=== PATIENT | female | born 1965 | race African-American/Black ===

== ENCOUNTER 2016-09-18 17:26 | Emergency (ER) | payer MEDICARE, OTHER ==
[2016-09-18] MEDS ORDERED: PROM-PHEN-COD 6.25-5-10MG/5ML 5 ML CUP PO STA (20:12)
[2016-09-18] MEDS ORDERED: IPRATROPIUM-ALBUTEROL 3 ML NEB INHALATION STA (20:12)
--- NOTE | 2016-09-18 20:51 | XR ---
EXAMINATION TYPE: XR chest 2V DATE OF EXAM: 09/18/2016 8:45 PM COMPARISON: 07/06/2015 HISTORY: Cough and short of breath TECHNIQUE: Frontal and lateral views of the chest are obtained. FINDINGS: Heart and mediastinum are normal. There is a 1.5 cm nodular density in the right mid lung. The other lung mahoney are clear. There are no hilar masses. Diaphragm is normal. Bony thorax is inta ct. IMPRESSION: Right midlung nodule is probably not changed compared to old exam. This is relatively de nse and consistent with a granuloma. Normal heart.
--- NOTE | 2016-09-18 21:03 | ED ---
URI HPI - General Chief Complaint: Upper Respiratory Infection Stated Complaint: Sob-asthma Time Seen by Provider: 09/18/16 20:08 Source: patient, RN notes reviewed Mode of arrival: ambulatory - History of Present Illness Initial Comments: Patient is a 48-year-old feel presenting to the chief complaint of shortness of breath for approximately one day. Patient reports that she has recently completed azithromycin and steroids approximately 2 days ago. She denies fever or chills, she is a smoker. She reports her cough has been productive. She states she uses breathing treatments with little improvement. She reports she feels a tightness in her chest and wheezing. She denies headche, ear pain, sore throat, vision changes, nausea, vomiting. - Related Data Home Medications Medication Instructions Recorded Confirmed ALPRAZolam [Xanax] 2 mg PO BID 07/03/14 09/18/16 Albuterol Sulfate [Ventolin HFA] 1 - 3 puff INHALATION RT-Q4H PRN 10/12/1409/18 Butalb/Acetaminophen/Caffeine 1 tab PO BID PRN 10/12/14 09/18/16 [Fioricet 50-325-40] Zolpidem [Ambien] 10 mg PO HS 10/12/14 09/18/16 sitaGLIPtin [Januvia] 100 mg PO DAILY 10/12/14 09/18/16 Gabapentin [Neurontin] 300 mg PO TID 05/26/15 09/18/16 Insulin Detemir [Levemir Flextouch] 30 units SQ HS 05/26/15 09/18/16 Loratadine 10 mg PO DAILY 05/26/15 09/18/16 Methocarbamol [Robaxin] 500 mg PO TID 05/26/15 09/18/16 Naproxen [Naprosyn] 500 mg PO DAILY 05/26/15 09/18/16 Nortriptyline [Pamelor] 10 mg PO HS 05/26/15 09/18/16 oxyCODONE HCL 30 mg PO TID 05/26/15 09/18/16 traMADol HCl [Ultram] 50 mg PO Q6H PRN 05/26/15 09/18/16 Ascorbic Acid [Vitamin C] 1,000 mg PO DAILY 09/18/16 09/18/16 Cholecalciferol [Vitamin D3] 1,000 unit PO DAILY 09/18/16 09/18/16 Multivitamins, Thera [Multivitamin] 1 tab PO DAILY 09/18/16 09/18/16 Previous Rx's Medication Instructions Recorded Ipratropium-Albuterol Nebulize 3 ml INHALATION TID #30 neb 09/18/16 [Duoneb 0.5 mg-3 mg/3 ml Soln] Ipratropium-Albuterol Nebulize 3 ml INHALATION TID #30 neb 09/18/16 [Duoneb 0.5 mg-3 mg/3 ml Soln] Levofloxacin [Levaquin] 750 mg PO DAILY #4 tab 09/18/16 Promethazine/Dextromethorphan 5 ml PO BID #30 ml 09/18/16 [Phenergan DM Syrup] predniSONE 50 mg PO DAILY #5 tab 09/18/16 Allergies Allergy/AdvReac Type Severity Reaction Status Date / Time No Known Allergies Allergy Verified 09/18/16 20:47 Review of Systems ROS Statement: Those systems with pertinent positive or pertinent negative responses have been documented in the HPI. ROS Other: All systems not noted in ROS Statement are negative. Past Medical History Past Medical History: Asthma, Diabetes Mellitus, Fibromyalgia Additional Past Medical History / Comment(s): chronic bronchitis, DJD of the back and neck, History of Any Multi-Drug Resistant Organisms: None Reported Past Surgical History: Back Surgery, Orthopedic Surgery Additional Past Surgical History / Comment(s): rt shoulder Past Anesthesia/Blood Transfusion Reactions: No Reported Reaction Past Psychological History: Anxiety, Depression Smoking Status: Current every day smoker Past Alcohol Use History: None Reported Past Drug Use History: None Reported - Past Family History Mother History Unknown: Yes Family Medical History: Diabetes Mellitus General Exam - General Exam Comments Initial Comments: Pleasant well appearing 50 year old female. No acute dsitress. General appearance: alert, in no apparent distress Head exam: Present: atraumatic, normocephalic, normal inspection Eye exam: Present: normal appearance, PERRL, EOMI. Absent: scleral icterus, conjunctival injection, periorbital swelling ENT exam: Present: normal exam, mucous membranes moist Neck exam: Present: normal inspection. Absent: tenderness, meningismus, lymphadenopathy Respiratory exam: Present: normal lung sounds bilaterally, wheezes (Mild wheeze. ). Absent: respiratory distress, rales, rhonchi, stridor Cardiovascular Exam: Present: regular rate, normal rhythm, normal heart sounds. Absent: systolic murmur, diastolic murmur, rubs, gallop, clicks GI/Abdominal exam: Present: soft, normal bowel sounds. Absent: distended, tenderness, guarding, rebound, rigid Extremities exam: Present: normal inspection, full ROM, normal capillary refill. Absent: tenderness, pedal edema, joint swelling, calf tenderness Back exam: Present: normal inspection Neurological exam: Present: alert, oriented X3, CN II-XII intact Psychiatric exam: Present: normal affect, normal mood Skin exam: Present: warm, dry, intact, normal color. Absent: rash Course Vital Signs 09/18/16 09/18/16 09/18/16 18:05 20:10 20:23 Temperature 98.6 F Pulse Rate 74 78 Respiratory 20 20 Rate Blood Pressure 168/82 O2 Sat by Pulse 98 Oximetry 09/18/16 09/18/16 20:36 21:45 Temperature 98.9 F Pulse Rate 78 95 Respiratory 18 Rate Blood Pressure 143/83 O2 Sat by Pulse 96 Oximetry Medical Decision Making - Medical Decision Making 50 year old female with cough and wheezing for one week, she recently completed Azithromycin antibiotic 2 days ago. She states that she has used her at home breathing treatments. She denies fever or chills, Patient given duoneb treatment and has improvement of wheezing. CXR shows no acute abnormalities and pneumonia. Patient will be given Rx of cough syrup, steroids, levaquin, and duoneb treatments for at home. CXR did show a stable pulmonary nodule and patient was advised to follow with PCP. Patient understands treatment plan and will comply. return parameteres discussed. Disposition Clinical Impression: Cough, Asthma Disposition: HOME SELF-CARE Condition: Good Instructions: Upper Respiratory Infection (ED), Asthma (ED) Additional Instructions: Patient instructed to complete steroid and antibiotic prescription. Follow-up with primary care physician. Return to the [facility] if any alarming signs or symptoms occur. Patient started to follow-up with primary care physician in regards to the pulmonary nodule. Prescriptions: Ipratropium-Albuterol Nebulize [Duoneb 0.5 mg-3 mg/3 ml Soln] 3 ml INHALATION TID #30 neb Ipratropium-Albuterol Nebulize [Duoneb 0.5 mg-3 mg/3 ml Soln] 3 ml INHALATION TID #30 neb Levofloxacin [Levaquin] 750 mg PO DAILY #4 tab Promethazine/Dextromethorphan [Phenergan DM Syrup] 5 ml PO BID #30 ml predniSONE 50 mg PO DAILY #5 tab Referrals: Elidia Davila MD [Primary Care Provider] - 1-2 days Time of Disposition: 21:19
[2016-09-18] MEDS ORDERED: LEVOFLOXACIN 750 MG TAB PO STA (21:16)
[2016-09-18] MEDS ORDERED: predniSONE 50 MG TAB PO STA (21:18)
[2016-09-18 21:49] VITALS: BP 143/83; PULSE 95; RESP 18; TEMP 98.9
== END 2016-09-18 21:45 | disposition home or self-care (01) ==
LOC: EC 17:26
DX: R05 Cough (principal); J45.909 Unspecified asthma, uncomplicated; R91.1 Solitary pulmonary nodule; E11.9 Type 2 diabetes mellitus without complications; F41.9 Anxiety disorder, unspecified; M79.7 Fibromyalgia; F32.9 Major depressive disorder, single episode, unspecified; Z79.899 Other long term (current) drug therapy; Z79.84 Long term (current) use of oral hypoglycemic drugs; F17.200 Nicotine dependence, unspecified, uncomplicated
CPT/HCPCS: 94640; 71020; 99285; J7512

== ENCOUNTER 2017-02-27 23:03 | Emergency (ER) | payer MEDICARE, OTHER ==
[2017-02-27 23:12] VITALS: BP 172/111; PULSE 86; RESP 18; TEMP 98.7
[2017-02-27] MEDS ORDERED: diphenhydrAMINE 25 MG CAP PO STA (23:19)
[2017-02-27] MEDS ORDERED: HYDROcodone/APAP 10-325MG 1 EACH TAB PO ONE (23:19)
[2017-02-27] MEDS ORDERED: AMOXIC-POT CLAV 875-125MG 1 EACH TAB PO STA (23:19)
[2017-02-27] MEDS ORDERED: PROCHLORPERAZINE 5 MG TAB PO STA (23:48)
[2017-02-27] MEDS ORDERED: MORPHINE SULFATE 10 MG/ML SYRINGE IM STA (23:49)
--- NOTE | 2017-02-28 00:20 | ED ---
Allergic Reaction HPI - General Chief complaint: Allergic Reaction Stated complaint: facial swelling Time Seen by Provider: 02/27/17 23:16 Source: patient, family Mode of arrival: ambulatory Limitations: no limitations - History of Present Illness Initial Comments: Patient complains of pain and swelling in the left lower jaw. She has no neck pain or stiffness. She has no trouble opening her mouth. She has no trouble swallowing. She has no change in vision or hearing. She has no headache. Nothing makes the pain better or worse. She denies any injuries. She has no weakness. She has no fever or chills. - Related Data Home Medications Medication Instructions Recorded Confirmed ALPRAZolam [Xanax] 2 mg PO BID 07/03/14 02/27/17 Albuterol Sulfate [Ventolin HFA] 1 - 3 puff INHALATION RT-Q4H PRN 10/12/1402/27 Butalb/Acetaminophen/Caffeine 1 tab PO BID PRN 10/12/14 02/27/17 [Fioricet 50-325-40] Zolpidem [Ambien] 10 mg PO HS 10/12/14 02/27/17 sitaGLIPtin [Januvia] 100 mg PO DAILY 10/12/14 02/27/17 Gabapentin [Neurontin] 300 mg PO TID 05/26/15 02/27/17 Insulin Detemir [Levemir Flextouch] 30 units SQ HS 05/26/15 02/27/17 Loratadine 10 mg PO DAILY 05/26/15 02/27/17 Methocarbamol [Robaxin] 500 mg PO TID 05/26/15 02/27/17 Naproxen [Naprosyn] 500 mg PO DAILY 05/26/15 02/27/17 Nortriptyline [Pamelor] 10 mg PO HS 05/26/15 02/27/17 oxyCODONE HCL 30 mg PO TID 05/26/15 02/27/17 traMADol HCl [Ultram] 50 mg PO Q6H PRN 05/26/15 02/27/17 Ascorbic Acid [Vitamin C] 1,000 mg PO DAILY 09/18/16 02/27/17 Cholecalciferol [Vitamin D3] 1,000 unit PO DAILY 09/18/16 02/27/17 Multivitamins, Thera [Multivitamin] 1 tab PO DAILY 09/18/16 02/27/17 Previous Rx's Medication Instructions Recorded Ipratropium-Albuterol Nebulize 3 ml INHALATION TID #30 neb 09/18/16 [Duoneb 0.5 mg-3 mg/3 ml Soln] Ipratropium-Albuterol Nebulize 3 ml INHALATION TID #30 neb 09/18/16 [Duoneb 0.5 mg-3 mg/3 ml Soln] Levofloxacin [Levaquin] 750 mg PO DAILY #4 tab 09/18/16 Promethazine/Dextromethorphan 5 ml PO BID #30 ml 09/18/16 [Phenergan DM Syrup] predniSONE 50 mg PO DAILY #5 tab 09/18/16 Amoxic-Pot Clav 875-125Mg 1 tab PO Q12HR #20 tablet 02/28/17 [Augmentin 875-125] Allergies Allergy/AdvReac Type Severity Reaction Status Date / Time No Known Allergies Allergy Verified 02/27/17 23:12 Review of Systems ROS Statement: Those systems with pertinent positive or pertinent negative responses have been documented in the HPI. ROS Other: All systems not noted in ROS Statement are negative. Past Medical History Past Medical History: Asthma, Diabetes Mellitus, Fibromyalgia Additional Past Medical History / Comment(s): chronic bronchitis, DJD of the back and neck, History of Any Multi-Drug Resistant Organisms: None Reported Past Surgical History: Back Surgery, Orthopedic Surgery Additional Past Surgical History / Comment(s): rt shoulder Past Anesthesia/Blood Transfusion Reactions: No Reported Reaction Past Psychological History: Anxiety, Depression Smoking Status: Current every day smoker Past Alcohol Use History: None Reported Past Drug Use History: None Reported - Past Family History Mother History Unknown: Yes Family Medical History: Diabetes Mellitus General Exam Limitations: no limitations General appearance: alert, in no apparent distress Head exam: Present: atraumatic, normocephalic, normal inspection Eye exam: Present: normal appearance, PERRL, EOMI. Absent: scleral icterus, conjunctival injection, periorbital swelling ENT exam: Present: normal exam, mucous membranes moist Neck exam: Present: normal inspection. Absent: tenderness, meningismus, lymphadenopathy Respiratory exam: Present: normal lung sounds bilaterally. Absent: respiratory distress, wheezes, rales, rhonchi, stridor Cardiovascular Exam: Present: regular rate, normal rhythm, normal heart sounds. Absent: systolic murmur, diastolic murmur, rubs, gallop, clicks GI/Abdominal exam: Present: soft, normal bowel sounds. Absent: distended, tenderness, guarding, rebound, rigid Extremities exam: Present: normal inspection, full ROM, normal capillary refill. Absent: tenderness, pedal edema, joint swelling, calf tenderness Back exam: Present: normal inspection Neurological exam: Present: alert, oriented X3, CN II-XII intact Psychiatric exam: Present: normal affect, normal mood Skin exam: Present: warm, dry, intact, normal color. Absent: rash Course Vital Signs 02/27/17 23:06 Temperature 98.7 F Pulse Rate 86 Respiratory 18 Rate Blood Pressure 172/111 O2 Sat by Pulse 99 Oximetry Medical Decision Making - Medical Decision Making Patient complains of pain in the jaw. There is possibly an infectious process occurring. I am giving her a dose of antibiotics and a prescription for antibiotics to go home on. She is tolerating oral intake and has no symptoms to suggest a deep space infection. At this time she is stable for discharge and outpatient follow-up. Disposition Clinical Impression: Pain, dental Disposition: HOME SELF-CARE Condition: Good Instructions: Sinusitis (ED) Prescriptions: Amoxic-Pot Clav 875-125Mg [Augmentin 875-125] 1 tab PO Q12HR #20 tablet Referrals: Elidia Davila MD [Primary Care Provider] - 1-2 days Time of Disposition: 00:19
[2017-02-28] MEDS ORDERED: HYDROmorphone 1 MG/ML 1 ML SYRINGE IM STA (00:27)
== END 2017-02-28 00:56 | disposition home or self-care (01) ==
LOC: EC 23:03
DX: K08.89 Other specified disorders of teeth and supporting structures (principal); R68.84 Jaw pain; R22.0 Localized swelling, mass and lump, head; E11.9 Type 2 diabetes mellitus without complications; M79.7 Fibromyalgia; F32.9 Major depressive disorder, single episode, unspecified; F41.9 Anxiety disorder, unspecified; F17.200 Nicotine dependence, unspecified, uncomplicated; Z79.1 Long term (current) use of non-steroidal anti-inflammatories (NSAID); Z79.4 Long term (current) use of insulin; Z79.84 Long term (current) use of oral hypoglycemic drugs; Z79.891 Long term (current) use of opiate analgesic; Z79.899 Other long term (current) drug therapy; Z87.39 Personal history of other diseases of the musculoskeletal system and connective tissue
CPT/HCPCS: 99283; 96372 ×2; S0183; J2270; J1170

== ENCOUNTER 2018-02-03 13:16 | Emergency (ER) | payer MEDICARE, OTHER ==
[2018-02-03 13:23] VITALS: BP 170/94; PULSE 79; RESP 18; TEMP 98.1
[2018-02-03] MEDS ORDERED: KETOROLAC 30 MG/ML 1 ML VIAL IM STA (13:41)
--- NOTE | 2018-02-03 13:43 | ED ---
General Adult HPI - General Chief complaint: Upper Respiratory Infection Stated complaint: sinus problems Time Seen by Provider: 02/03/18 13:23 Source: patient, RN notes reviewed, old records reviewed Mode of arrival: ambulatory Limitations: no limitations - History of Present Illness Initial comments: 52-year-old female presents with nasal congestion and swelling over her right side of her face. Patient states she has been congested for the past 4 days. Denies fever or chills. Denies any dental pain. Denies sore throat. Denies cough or dyspnea. Patient has been taking Augmentin which she had prescribed previously. She's taken a total of 3 pills over 3 days. She is also taking Claritin but remains congested. No abdominal pain. No chest pain. Denies ear pain or fullness. - Related Data Home Medications Medication Instructions Recorded Confirmed ALPRAZolam [Xanax] 2 mg PO BID 07/03/14 07/19/17 Albuterol Sulfate [Ventolin HFA] 1 - 3 puff INHALATION RT-Q4H PRN 10/12/1407/19 Butalb/Acetaminophen/Caffeine 1 tab PO BID PRN 10/12/14 07/19/17 [Fioricet 50-325-40] Zolpidem [Ambien] 10 mg PO HS 10/12/14 07/19/17 sitaGLIPtin [Januvia] 100 mg PO DAILY 10/12/14 07/19/17 Gabapentin [Neurontin] 300 mg PO TID 05/26/15 07/19/17 Insulin Detemir [Levemir Flextouch] 30 units SQ HS 05/26/15 07/19/17 Loratadine 10 mg PO DAILY 05/26/15 07/19/17 Methocarbamol [Robaxin] 500 mg PO TID 05/26/15 07/19/17 Naproxen [Naprosyn] 500 mg PO DAILY 05/26/15 07/19/17 Nortriptyline [Pamelor] 10 mg PO HS 05/26/15 07/19/17 oxyCODONE HCL 30 mg PO TID 05/26/15 07/19/17 traMADol HCl [Ultram] 50 mg PO Q6H PRN 05/26/15 07/19/17 Ascorbic Acid [Vitamin C] 1,000 mg PO DAILY 09/18/16 07/19/17 Cholecalciferol [Vitamin D3] 1,000 unit PO DAILY 09/18/16 07/19/17 Multivitamins, Thera [Multivitamin] 1 tab PO DAILY 09/18/16 07/19/17 Previous Rx's Medication Instructions Recorded Ipratropium-Albuterol Nebulize 3 ml INHALATION TID #30 neb 09/18/16 [Duoneb 0.5 mg-3 mg/3 ml Soln] Ipratropium-Albuterol Nebulize 3 ml INHALATION TID #30 neb 09/18/16 [Duoneb 0.5 mg-3 mg/3 ml Soln] Levofloxacin [Levaquin] 750 mg PO DAILY #4 tab 09/18/16 Promethazine/Dextromethorphan 5 ml PO BID #30 ml 09/18/16 [Phenergan DM Syrup] predniSONE 50 mg PO DAILY #5 tab 09/18/16 predniSONE 60 mg PO DAILY #30 tab 07/19/17 Fluticasone Nasal [place] [Flonase 2 spr EA NOSTRIL DAILY #1 bottle 02/03/18 Nasal [place]] Levofloxacin [Levaquin] 500 mg PO DAILY 3 Days #5 tab 02/03/18 Loratadine [Claritin] 10 mg PO DAILY #30 tab 02/03/18 Allergies Allergy/AdvReac Type Severity Reaction Status Date / Time No Known Allergies Allergy Verified 02/03/18 13:23 Review of Systems ROS Statement: Those systems with pertinent positive or pertinent negative responses have been documented in the HPI. ROS Other: All systems not noted in ROS Statement are negative. Past Medical History Past Medical History: Asthma, Diabetes Mellitus, Fibromyalgia Additional Past Medical History / Comment(s): chronic bronchitis, DJD of the back and neck, History of Any Multi-Drug Resistant Organisms: None Reported Past Surgical History: Back Surgery, Orthopedic Surgery Additional Past Surgical History / Comment(s): rt shoulder Past Anesthesia/Blood Transfusion Reactions: No Reported Reaction Past Psychological History: Anxiety, Depression Smoking Status: Current every day smoker Past Alcohol Use History: None Reported Past Drug Use History: None Reported - Past Family History Mother History Unknown: Yes Family Medical History: Diabetes Mellitus General Exam Limitations: no limitations General appearance: alert, in no apparent distress, appears intoxicated Head exam: Present: atraumatic, normocephalic Eye exam: Present: PERRL, EOMI, periorbital swelling (Some minimal infraorbital swelling) ENT exam: Present: mucous membranes moist, normal external ear exam, other ( Right tympanic membrane is within normal limits. Poor dentition on the right upper molars) Neck exam: Present: normal inspection, full ROM. Absent: tenderness, meningismus Respiratory exam: Present: normal lung sounds bilaterally. Absent: respiratory distress, wheezes Cardiovascular Exam: Present: regular rate, normal rhythm GI/Abdominal exam: Present: soft. Absent: distended, tenderness, guarding Extremities exam: Present: normal inspection, full ROM, normal capillary refill. Absent: tenderness, pedal edema Neurological exam: Present: alert, oriented X3, CN II-XII intact. Absent: motor sensory deficit Psychiatric exam: Present: normal affect, normal mood Skin exam: Present: warm, dry, intact Course Vital Signs 02/03/18 13:20 Temperature 98.1 F Pulse Rate 79 Respiratory 18 Rate Blood Pressure 170/94 O2 Sat by Pulse 100 Oximetry Medical Decision Making - Medical Decision Making 52-year-old female presenting with nasal congestion and right facial pain and swelling. She does have some very minimal infraorbital and maxillary swelling. Nasal exam shows swollen turbinates on the right side. No pain on extraocular movements. Globes are soft bilaterally. No signs of orbital cellulitis at this time. Patient is afebrile and otherwise well-appearing. Patient has taken 3 days of Augmentin once daily. This is inadequate dosing, however given that she has been on this antibiotic she will be switched to Levaquin, she will continue Claritin and will begin Flonase. She will pay attention to her symptoms, and return with worsening symptoms or the development of fever. She will follow-up with her primary care physician. Disposition Clinical Impression: Sinusitis Disposition: HOME SELF-CARE Condition: Good Instructions: Sinusitis (ED) Additional Instructions: Please return with worsening swelling or development of fever. Follow-up with primary care physician. Prescriptions: Fluticasone Nasal [place] [Flonase Nasal [place]] 2 spr EA NOSTRIL DAILY #1 bottle Levofloxacin [Levaquin] 500 mg PO DAILY 3 Days #5 tab Loratadine [Claritin] 10 mg PO DAILY #30 tab Is patient prescribed a controlled substance at d/c from ED?: No Referrals: Elidia Davila MD [Primary Care Provider] - 1-2 days Time of Disposition: 13:52
== END 2018-02-03 14:03 | disposition home or self-care (01) ==
LOC: EC 13:16
DX: J32.8 Other chronic sinusitis (principal); E11.9 Type 2 diabetes mellitus without complications; M79.7 Fibromyalgia; F32.9 Major depressive disorder, single episode, unspecified; F41.9 Anxiety disorder, unspecified; F17.200 Nicotine dependence, unspecified, uncomplicated; Z79.1 Long term (current) use of non-steroidal anti-inflammatories (NSAID); Z79.4 Long term (current) use of insulin; Z79.84 Long term (current) use of oral hypoglycemic drugs; Z79.891 Long term (current) use of opiate analgesic; Z79.899 Other long term (current) drug therapy
CPT/HCPCS: 99283; 96372; J1885

== ENCOUNTER 2018-03-27 18:58 | Emergency (ER) | payer MEDICARE, OTHER ==
[2018-03-27 19:33] VITALS: RESP 18
[2018-03-27] MEDS ORDERED: KETOROLAC 30 MG/ML 1 ML VIAL IM STA (20:15)
[2018-03-27] MEDS ORDERED: ORPHENADRINE 30 MG/ML 2 ML VIAL IM STA (20:15)
[2018-03-27] MEDS ORDERED: HYDROmorphone 1 MG/ML 1 ML SYRINGE IVP STA (20:15)
--- NOTE | 2018-03-27 20:29 | ED ---
Back Pain HPI - General Chief Complaint: Back Pain/Injury Stated Complaint: Back Pain, Chest Tightness Time Seen by Provider: 03/27/18 20:01 Source: patient Limitations: no limitations - History of Present Illness Initial Comments: 52-year-old female patient presents to the emergency department today for evaluation of increased low back pain. Patient states that she has a chronic low back pain however her usual medications are not working. Patient states she had an increase in the back pain approximate days ago. Patient states that she has been fighting through the pain since then cannot take it any longer. Patient states that the pain radiates on the right leg all the way to the toes. States this is usual for her. She denies any saddle anesthesia. Denies any loss of bowel or bladder control. Patient states that the pain is been so bad her entire body now hurts. Patient does have a history of fibromyalgia. She denies any dizziness. States she feels weakness from fighting the pain. She denies any fevers or chills. She denies any injury to her back. Patient denies any recent rash, shortness breath, chest pain, abdominal pain, nausea, vomiting , diarrhea, constipation, hematuria, dysuria, urinary urgency, urinary frequency , headache, visual changes, or any other complaints. - Related Data Home Medications Medication Instructions Recorded Confirmed ALPRAZolam [Xanax] 2 mg PO BID 07/03/14 02/03/18 Albuterol Sulfate [Ventolin HFA] 2 puff INHALATION RT-Q4H PRN 10/12/14 02/03/18 sitaGLIPtin [Januvia] 100 mg PO DAILY 10/12/14 02/03/18 Gabapentin [Neurontin] 300 mg PO TID 05/26/15 02/03/18 Naproxen [Naprosyn] 500 mg PO BID 05/26/15 02/03/18 oxyCODONE HCL 30 mg PO Q8H 05/26/15 02/03/18 Azelastine HCl [Astepro] 1 spray EA NOSTRIL BID PRN 02/03/18 02/03/18 Banophen 25 mg PO DAILY PRN 02/03/18 02/03/18 Budesonide-Formot 160-4.5 Mcg 2 puff INHALATION RT-BID 02/03/18 02/03/18 [Symbicort 160-4.5 Mcg Inhaler] Diclofenac Sodium Gel [Voltaren 2 gm TOPICAL BID PRN 02/03/18 02/03/18 Gel] Esomeprazole Magnesium [NexIUM] 40 mg PO DAILY 02/03/18 02/03/18 Insulin Glargine,Hum.rec.anlog 35 unit SQ HS 02/03/18 02/03/18 [Lantus Solostar] Insulin Lispro [humaLOG Kwikpen] See Protocol SQ ACHS 02/03/18 02/03/18 Ipratropium-Albuterol Nebulize 3 ml INHALATION RT-QID 02/03/18 02/03/18 [Duoneb 0.5 mg-3 mg/3 ml Soln] Pioglitazone [Actos] 45 mg PO DAILY 02/03/18 02/03/18 Simvastatin [Zocor] 20 mg PO HS 02/03/18 02/03/18 Zolpidem [Ambien] 5 mg PO HS PRN 02/03/18 02/03/18 Previous Rx's Medication Instructions Recorded Fluticasone Nasal [place] [Flonase 2 spr EA NOSTRIL DAILY #1 bottle 02/03/18 Nasal [place]] Levofloxacin [Levaquin] 500 mg PO DAILY 3 Days #5 tab 02/03/18 Loratadine [Claritin] 10 mg PO DAILY #30 tab 02/03/18 Orphenadrine [Norflex] 100 mg PO Q12H PRN #16 tablet.er 03/27/18 Allergies Allergy/AdvReac Type Severity Reaction Status Date / Time No Known Allergies Allergy Verified 03/27/18 19:33 Review of Systems ROS Statement: Those systems with pertinent positive or pertinent negative responses have been documented in the HPI. ROS Other: All systems not noted in ROS Statement are negative. Past Medical History Past Medical History: Asthma, Diabetes Mellitus, Fibromyalgia Additional Past Medical History / Comment(s): chronic bronchitis, DJD of the back and neck, History of Any Multi-Drug Resistant Organisms: None Reported Past Surgical History: Back Surgery, Orthopedic Surgery Additional Past Surgical History / Comment(s): rt shoulder Past Anesthesia/Blood Transfusion Reactions: No Reported Reaction Past Psychological History: Anxiety, Depression Smoking Status: Current every day smoker Past Alcohol Use History: None Reported Past Drug Use History: None Reported - Past Family History Mother History Unknown: Yes Family Medical History: Diabetes Mellitus General Exam Limitations: no limitations General appearance: alert, in no apparent distress, other (This is a well- developed, well-nourished adult female patient in no acute distress. Vital signs upon presentation are temperature 98.5F, pulse 82, respirations 18, blood pressure 157/90, pulse ox 100% on room air.) Eye exam: Present: normal appearance, PERRL, EOMI. Absent: scleral icterus, conjunctival injection, periorbital swelling ENT exam: Present: normal exam, normal oropharynx, mucous membranes moist Respiratory exam: Present: normal lung sounds bilaterally. Absent: respiratory distress, wheezes, rales, rhonchi, stridor Cardiovascular Exam: Present: regular rate, normal rhythm, normal heart sounds. Absent: systolic murmur, diastolic murmur, rubs, gallop, clicks GI/Abdominal exam: Present: soft, normal bowel sounds. Absent: distended, tenderness, guarding, rebound, rigid Extremities exam: Present: normal inspection, full ROM, normal capillary refill , other (Skin to the lower extremities is pink, warm, and dry. Cap refills less than 3 seconds. Pedal posttibial pulses are 2+ and equal bilaterally.). Absent: tenderness, pedal edema, joint swelling, calf tenderness Back exam: Present: normal inspection, tenderness (Generalized back tenderness) Neurological exam: Present: alert, oriented X3, CN II-XII intact, other ( Strength in all 4 extremities is 5/5.) Psychiatric exam: Present: normal affect, normal mood Skin exam: Present: warm, dry, intact, normal color. Absent: rash Course Vital Signs 03/27/18 03/27/18 03/27/18 19:31 21:07 21:13 Temperature 98.5 F Pulse Rate 82 82 82 Respiratory 18 Rate Blood Pressure 157/90 O2 Sat by Pulse 100 Oximetry 03/27/18 21:48 Temperature 98.6 F Pulse Rate 79 Respiratory 18 Rate Blood Pressure 140/84 O2 Sat by Pulse 99 Oximetry Medical Decision Making - Medical Decision Making 52-year-old female patient presented to the emergency department today for evaluation of increased low back pain causing her whole body to hurt. Physical examination was relatively unremarkable. Strength in all 4 extremities is 5/5. Lungs are clear to auscultation with good air movement. Patient was due for breathing treatments that she did request on here in the emergency department. She did receive IM medications here, did improve her symptoms somewhat however we did give an additional dose to increase her pain relief. Patient be discharged home with a prescription for muscle relaxer tad into her home pain medication. She is instructed to follow-up with her primary care physician for recheck in 1-2 days. Return parameters discussed in detail. She verbalizes understanding and agrees with this plan. Disposition Clinical Impression: Acute exacerbation of chronic low back pain Disposition: HOME SELF-CARE Condition: Good Instructions: Muscle Spasm (ED), Chronic Back Pain (ED) Additional Instructions: Apply warm moist heat to the painful areas. Take medications as directed. Follow-up with your primary care physician for recheck in 1-2 days. Return here immediately for any new, worsening, or concerning symptoms. Prescriptions: Orphenadrine [Norflex] 100 mg PO Q12H PRN #16 tablet.er PRN Reason: Muscle Spasm Is patient prescribed a controlled substance at d/c from ED?: No Referrals: Elidia Davila MD [Primary Care Provider] - 1-2 days Time of Disposition: 20:29
[2018-03-27] MEDS ORDERED: ALBUTEROL NEBULIZED 2.5 MG/3 ML INHALATION STA (20:51)
[2018-03-27] MEDS ORDERED: HYDROmorphone 1 MG/ML 1 ML SYRINGE IM STA (21:17)
[2018-03-27 21:49] VITALS: BP 140/84; PULSE 79; TEMP 98.6
== END 2018-03-27 21:49 | disposition home or self-care (01) ==
LOC: EC 18:58
DX: M54.5 Low back pain (principal); G89.29 Other chronic pain; J45.909 Unspecified asthma, uncomplicated; E11.9 Type 2 diabetes mellitus without complications; M79.7 Fibromyalgia; F41.9 Anxiety disorder, unspecified; F32.9 Major depressive disorder, single episode, unspecified; F17.200 Nicotine dependence, unspecified, uncomplicated; Z79.1 Long term (current) use of non-steroidal anti-inflammatories (NSAID); Z79.4 Long term (current) use of insulin; Z79.51 Long term (current) use of inhaled steroids; Z79.891 Long term (current) use of opiate analgesic; Z79.899 Other long term (current) drug therapy
CPT/HCPCS: 94640; 93005; 99284; 96374; 96372 ×3; J2360; J1885; J1170

== ENCOUNTER → 2019-06-15 | Outpatient (CLI) | payer OTHER ==
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
== END | disposition home or self-care (01) ==
LOC: RADCTMAIN 15:53
PROVIDERS: ATTEND Internal Medicine
DX: M25.512 Pain in left shoulder (principal); M54.2 Cervicalgia; V89.2XXS Person injured in unspecified motor-vehicle accident, traffic, sequela
CPT/HCPCS: 70450; 70490

== ENCOUNTER 2020-03-27 04:59 | Emergency (ER) | payer MEDICARE, OTHER ==
[2020-03-27 05:09] VITALS: RESP 18
[2020-03-27] MEDS ORDERED: MORPHINE SULFATE 4 MG/ML SYRINGE IM STA (05:48)
[2020-03-27] MEDS ORDERED: KETOROLAC 30 MG/ML 1 ML VIAL IM STA (05:48)
[2020-03-27] MEDS ORDERED: ORPHENADRINE 30 MG/ML 2 ML VIAL IM STA (05:48)
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
[2020-03-27] MEDS ORDERED: fentaNYL (PF) 50 MCG/ML 2 ML AMP IM STA (06:03)
[2020-03-27 06:39] VITALS: BP 148/93; PULSE 60; TEMP 97.7
== END 2020-03-27 06:39 | disposition home or self-care (01) ==
LOC: EC 04:59
DX: G89.29 Other chronic pain (principal); M54.9 Dorsalgia, unspecified; M79.7 Fibromyalgia; J45.909 Unspecified asthma, uncomplicated; F41.9 Anxiety disorder, unspecified; F32.9 Major depressive disorder, single episode, unspecified; E11.9 Type 2 diabetes mellitus without complications; F17.200 Nicotine dependence, unspecified, uncomplicated; Z79.51 Long term (current) use of inhaled steroids; Z79.4 Long term (current) use of insulin; Z79.899 Other long term (current) drug therapy; Z79.1 Long term (current) use of non-steroidal anti-inflammatories (NSAID); Z98.890 Other specified postprocedural states
CPT/HCPCS: 99283; 96372 ×3; J2360; J3010; J1885

== ENCOUNTER 2020-11-23 18:31 | Emergency (ER) | payer OTHER, MEDICARE ==
[2020-11-23 18:41] VITALS: TEMP 98.5
[2020-11-23] MEDS ORDERED: HYDROmorphone 1 MG/ML 1 ML SYRINGE IVP STA ×2 (18:44→22:26)
[2020-11-23] MEDS ORDERED: LORazepam 2 MG/ML INJ IV STA (18:59)
[2020-11-23 19:15] LABS: Basophils % (A) 1 %; Eosinophils # (A) 0.2 k/uL (0-0.7); Eosinophils % (A) 2 %; HGB 13.4 gm/dL (11.4-16.0); Lymphocytes # (A) 2.5 k/uL (1.0-4.8); Lymphocytes % (A) 32 %; MCHC 34.3 g/dL (31.0-37.0); MCV 87.6 fL (80.0-100.0); Mean Platelet Volume 7.3; Monocytes # (A) 0.4 k/uL (0-1.0); Monocytes % (A) 5 %; Neutrophils # (A) 4.8 k/uL (1.3-7.7); Neutrophils % (A) 60 %; Platelet Count 304 k/uL (150-450); RBC 4.45 m/uL (3.80-5.40); RDW 12.6 % (11.5-15.5)
[2020-11-23 19:21] LABS: ALT 35 U/L (4-34); AST 24 U/L (14-36); African American GFR (CKD) >90 (>60 ml/min/1.73 sqM); Albumin 4.4 g/dL (3.5-5.0); Alcohol <10 mg/dL; Alkaline Phosphatase 116 U/L (38-126); Anion Gap 8 mmol/L; Blood Urea Nitrogen 16 mg/dL (7-17); Calcium 9.6 mg/dL (8.4-10.2); Carbon Dioxide 25 mmol/L (22-30); Chloride 105 mmol/L (98-107); Creatine Kinase 122 U/L (30-135); Glucose 202 mg/dL (74-99); Non-African American GFR(CKD) >90 (>60 ml/min/1.73 sqM); Potassium 4.2 mmol/L (3.5-5.1); Sodium 138 mmol/L (137-145); Total Bilirubin 0.5 mg/dL (0.2-1.3); Total Protein 7.7 g/dL (6.3-8.2)
[2020-11-23 20:56] LABS: Appearance,Urine Clear (Clear); Bacteria,Urine Rare /hpf; Bilirubin,Urine Negative (Negative); Blood,Urine Negative (Negative); Color,Urine Yellow; Glucose,Urine (UA) 1+ (Negative); Ketones,Urine Negative (Negative); Leukocyte Esterase,Urine Small (Negative); Mucus,Urine Few /hpf; Nitrite,Urine Negative (Negative); PH, Urine 6.5 (5.0-8.0); Protein,Urine Negative (Negative); RBC,Urine <1 /hpf (0-5); Specific Gravity,Urine 1.025 (1.001-1.035); Squamous Epithelial Cell,Urine 2 /hpf (0-4); Urobilinogen,Urine <2.0 mg/dL (<2.0); WBC,Urine 1 /hpf (0-5)
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
[2020-11-23 21:09] LABS: Amphetamine Screen,Urine Not Detected (NotDetected); Barbiturate Screen,Urine Detected (NotDetected); Benzodiazepines Screen,Urine Detected (NotDetected); Cocaine Screen,Urine Not Detected (NotDetected); Methadone Screen, Urine Not Detected (NotDetected); Opiate Screen,Urine Not Detected (NotDetected); Oxycodone Screen, Urine Not Detected (NotDetected); Phencyclidine Screen,Urine Not Detected (NotDetected); Tricyclic Antidepressant,Urine Not Detected (NotDetected); Urn Cannabinoid Scrn Detected (NotDetected)
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
[2020-11-23 22:44] VITALS: BP 179/95; PULSE 90; RESP 18
== END 2020-11-23 22:43 | disposition home or self-care (01) ==
LOC: EC 18:31
DX: M54.2 Cervicalgia (principal); R10.9 Unspecified abdominal pain; E11.9 Type 2 diabetes mellitus without complications; F41.9 Anxiety disorder, unspecified; F32.9 Major depressive disorder, single episode, unspecified; J45.909 Unspecified asthma, uncomplicated; M79.7 Fibromyalgia; F17.200 Nicotine dependence, unspecified, uncomplicated; Z79.4 Long term (current) use of insulin; Z79.51 Long term (current) use of inhaled steroids; Z79.899 Other long term (current) drug therapy; V89.2XXA Person injured in unspecified motor-vehicle accident, traffic, initial encounter; Y92.410 Unspecified street and highway as the place of occurrence of the external cause
CPT/HCPCS: 36415; 93005; 80053; 82550; 84484; 85025; 81001; 80306; 80320; 72125; 70450; 71260; 74177; 99284; 96374; 96375; 96376; J2060; J1170; Q9967

== ENCOUNTER → 2021-01-04 | Outpatient (CLI) | payer OTHER, MEDICARE ==
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
== END | disposition home or self-care (01) ==
LOC: RADMRIMAIN 16:05
PROVIDERS: ATTEND Orthopaedic Surgery Orthopaedic Surgery of the Spine
DX: M23.322 Other meniscus derangements, posterior horn of medial meniscus, left knee (principal); M23.321 Other meniscus derangements, posterior horn of medial meniscus, right knee; M25.461 Effusion, right knee

== ENCOUNTER → 2022-01-25 | Outpatient (CLI) | payer OTHER ==
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
== END | disposition home or self-care (01) ==
LOC: RADMRIMAIN 15:54
PROVIDERS: ATTEND Orthopaedic Surgery Orthopaedic Surgery of the Spine
DX: M47.816 Spondylosis without myelopathy or radiculopathy, lumbar region (principal)
CPT/HCPCS: 72141; 72146; 72148

== ENCOUNTER 2022-08-24 16:20 | Emergency (ER) | payer MEDICARE, OTHER ==
[2022-08-24 16:55] VITALS: RESP 20
[2022-08-24] MEDS ORDERED: KETOROLAC 15 MG/ML 1 ML VIAL IM STA (20:19)
[2022-08-24] MEDS ORDERED: LORazepam 1 MG TAB PO STA (20:19)
[2022-08-24] MEDS ORDERED: CYCLOBENZAPRINE 10 MG TAB PO STA (21:21)
[2022-08-24] MEDS ORDERED: LIDOCAINE 5% PATCH TOPICAL STA (21:24)
--- NOTE | 2022-08-24 21:45 | XR ---
EXAMINATION TYPE: XR chest 1V portable DATE OF EXAM: 08/24/2022 9:35 PM COMPARISON: Chest radiographs from CT 11/23/2020 chest radiograph 07/19/2017 TECHNIQUE: XR chest 1V po rtable . CLINICAL INDICATION:Female, 56 years old with history of rib pain; FINDINGS: Lungs/Pleura: There is no evidence of pleural effusion, focal consolidation, or pneumothorax. Unchan ged right midlung calcified granuloma dating back to at least 2016. Pulmonary vascularity: Unremarkable. Heart/mediastinum: Cardiomediastinal silhouette is unremarkable. Musculoskeletal: No acute osseous pathology. Rotator cuff repair changes in the right. IMPRESSION: No acute cardiopulmonary disease/process.
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
[2022-08-24] MEDS ORDERED: HYDROmorphone 0.5 MG/0.5 ML SYRINGE IM STA (22:30)
[2022-08-24 22:50] VITALS: BP 159/92; PULSE 93; TEMP 98.1
== END 2022-08-24 22:58 | disposition home or self-care (01) ==
LOC: EC 16:20
DX: G89.29 Other chronic pain (principal); F41.9 Anxiety disorder, unspecified; E11.9 Type 2 diabetes mellitus without complications; J45.909 Unspecified asthma, uncomplicated; F17.200 Nicotine dependence, unspecified, uncomplicated; Z79.4 Long term (current) use of insulin; Z79.899 Other long term (current) drug therapy
CPT/HCPCS: 93005; 71045; 99284; 96372 ×2; J1885; J1170

== ENCOUNTER → 2023-10-17 | Outpatient (CLI) | payer MEDICARE, OTHER ==
[2023-10-17 11:07] VITALS: BP 162/120; PULSE 97; RESP 15; TEMP 98.8
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
== END ==
LOC: PNWHC3 09:31
PROVIDERS: ATTEND Specialist
DX: M96.1 Postlaminectomy syndrome, not elsewhere classified (principal); M51.37 Other intervertebral disc degeneration, lumbosacral region; M50.33 Other cervical disc degeneration, cervicothoracic region; M51.35 Other intervertebral disc degeneration, thoracolumbar region; M19.90 Unspecified osteoarthritis, unspecified site; M25.512 Pain in left shoulder; J45.909 Unspecified asthma, uncomplicated; E11.9 Type 2 diabetes mellitus without complications; F32.9 Major depressive disorder, single episode, unspecified; F41.9 Anxiety disorder, unspecified; F17.200 Nicotine dependence, unspecified, uncomplicated; F12.90 Cannabis use, unspecified, uncomplicated; Z87.39 Personal history of other diseases of the musculoskeletal system and connective tissue; Z79.84 Long term (current) use of oral hypoglycemic drugs; Z79.4 Long term (current) use of insulin; Z79.51 Long term (current) use of inhaled steroids; Z79.899 Other long term (current) drug therapy
CPT/HCPCS: 99211

== ENCOUNTER 2023-11-12 20:09 | Emergency (ER) | payer MEDICARE, OTHER ==
[2023-11-12 21:21] VITALS: BP 171/75; PULSE 106; RESP 20; TEMP 98.6
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
[2023-11-12] MEDS: DIPH,PERTUS(ACELL)TETVAC-LF 0.5 ML VIAL IM ONE (21:59)
[2023-11-12] MEDS: KETOROLAC 15 MG/ML 1 ML VIAL IM STA (22:06)
== END 2023-11-12 22:12 | disposition home or self-care (01) ==
LOC: EC 20:09
DX: T25.222A Burn of second degree of left foot, initial encounter (principal); F17.200 Nicotine dependence, unspecified, uncomplicated; Z23 Encounter for immunization; X10.2XXA Contact with fats and cooking oils, initial encounter
CPT/HCPCS: 16020; 90471; 90715; 99283

== ENCOUNTER 2023-11-13 21:55 | Emergency (ER) | payer MEDICARE, OTHER ==
[2023-11-13 23:22] VITALS: RESP 16; TEMP 98.3
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
[2023-11-13] MEDS: ACET/COD 300 MG/30 MG STARTER PACK 6 TAB BTL PO STA (23:45)
[2023-11-13] MEDS: HYDROmorphone 0.5 MG/0.5 ML SYRINGE IM STA (23:46)
[2023-11-14 00:38] VITALS: BP 161/99; PULSE 97
== END 2023-11-14 00:07 | disposition home or self-care (01) ==
LOC: EC 21:55
DX: T25.122A Burn of first degree of left foot, initial encounter (principal); T31.0 Burns involving less than 10% of body surface; F17.200 Nicotine dependence, unspecified, uncomplicated; X10.2XXA Contact with fats and cooking oils, initial encounter
CPT/HCPCS: 99283; 96372; J1170

== ENCOUNTER → 2024-01-14 | Outpatient (CLI) | payer MEDICARE, OTHER ==
[2024-01-14 15:49] LABS: Basophils # (A) 0.06 X 10*3/uL (0.00-0.10); Eosinophils % (A) 3.2 %; HCT 37.6 % (37.2-46.3); HGB 12.3 g/dL (12.0-15.0); Lymphocytes # (A) 2.75 X 10*3/uL (0.90-5.00); Lymphocytes % (A) 44.4 %; MCH 29.6 pg (27.0-32.0); MCHC 32.7 g/dL (32.0-37.0); MCV 90.4 FL (80.0-97.0); Mean Platelet Volume 10.7 FL (9.5-12.2); Monocytes # (A) 0.48 X 10*3/uL (0.20-1.00); Monocytes % (A) 7.7 %; NRBC Per 100 WBC 0 X 10*3/uL (0.00-0.01); Neutrophils % (A) 43.5 %; Platelet Count 343 X 10*3/uL (140-440); RBC 4.16 X 10*6/uL (4.10-5.20); RDW 12.2 % (11.5-14.5)
[2024-01-14 16:07] LABS: ALT 16 U/L (8-44); AST 19 U/L (13-35); Albumin 4.2 g/dL (3.8-4.9); Alkaline Phosphatase 110 U/L (41-126); BUN/Creat Ratio 20.44 Ratio (12.00-20.00); Blood Urea Nitrogen 18.4 mg/dL (9.0-27.0); Calcium 9.4 mg/dL (8.7-10.3); Carbon Dioxide 23.4 mmol/L (21.6-31.8); Chloride 104 mmol/L (96-109); Chol/HDL Ratio 3.98 Ratio; Glucose 194 mg/dL (70-110); Potassium 4.7 mmol/L (3.5-5.5); Sodium 139 mmol/L (135-145); Total Bilirubin <0.2 mg/dL (0.3-1.2); Total Protein 7.2 g/dL (6.2-8.2)
[2024-01-14 16:08] LABS: T4, Free (Free Thyroxine) 1.16 ng/dL (0.80-1.80)
[2024-01-14 20:38] LABS: Appearance,Urine Cloudy (Clear); Bilirubin,Urine Negative (Negative); Blood,Urine Negative (Negative); Color,Urine Yellow (Yellow); Ketones,Urine Trace (Negative); Nitrite,Urine Negative (Negative); PH, Urine 5.5; Specific Gravity,Urine 1.029 (1.001-1.030)
[2024-01-14 21:16] LABS: Bacteria,Urine 1+ (None Seen); Yeast (UA) Present (None Seen)
== END | disposition home or self-care (01) ==
LOC: LABWHC1 12:09
PROVIDERS: ATTEND Specialist
DX: E11.22 Type 2 diabetes mellitus with diabetic chronic kidney disease (principal); N18.9 Chronic kidney disease, unspecified
CPT/HCPCS: 36415; 80053; 80061; 81001; 83036; 84439; 84443; 85025

== ENCOUNTER 2024-06-07 10:31 | Emergency (ER) | payer MEDICARE, OTHER ==
[2024-06-07 10:54] VITALS: RESP 18; TEMP 98.2
--- NOTE | 2024-06-07 11:14 | ED ---
General Adult HPI - General Chief complaint: Back Pain/Injury Stated complaint: body aches Time Seen by Provider: 06/07/24 10:35 Source: patient, RN notes reviewed, old records reviewed Mode of arrival: wheelchair Limitations: no limitations - History of Present Illness Initial comments: 58-year-old female presenting with chronic pain. Patient states that she has arranged follow-up with the pain specialist and is receiving injections in 4 days for chronic pain issues. No fever. No new injury. Patient has taken gabapentin, Flexeril, Tylenol, Tylenol 3, Percocet in the past. Patient requesting pain management. - Related Data Home Medications Medication Instructions Recorded Confirmed ALPRAZolam [Xanax] 2 mg PO BID 07/03/14 02/03/18 Albuterol Sulfate [Ventolin HFA] 2 puff INHALATION RT-Q4H PRN 10/12/14 02/03/18 sitaGLIPtin [Januvia] 100 mg PO DAILY 10/12/14 02/03/18 Gabapentin [Neurontin] 300 mg PO TID 05/26/15 02/03/18 Naproxen [Naprosyn] 500 mg PO BID 05/26/15 02/03/18 oxyCODONE HCL [oxyCODONE HCL (IR)] 30 mg PO Q8H 05/26/15 02/03/18 Azelastine HCl [Astepro] 1 spray EA NOSTRIL BID PRN 02/03/18 02/03/18 Banophen 25 mg PO DAILY PRN 02/03/18 02/03/18 Budesonide-Formot 160-4.5 Mcg 2 puff INHALATION RT-BID 02/03/18 02/03/18 [Symbicort 160-4.5 Mcg Inhaler] Diclofenac Sodium Gel [Voltaren 2 gm TOPICAL BID PRN 02/03/18 02/03/18 Gel] Esomeprazole Magnesium [NexIUM] 40 mg PO DAILY 02/03/18 02/03/18 Insulin Glargine,Hum.rec.anlog 35 unit SQ HS 02/03/18 02/03/18 [Lantus Solostar] Insulin Lispro [humaLOG Kwikpen] See Protocol SQ ACHS 02/03/18 02/03/18 Ipratropium-Albuterol Nebulize 3 ml INHALATION RT-QID 02/03/18 02/03/18 [Duoneb 0.5 mg-3 mg/3 ml Soln] Pioglitazone [Actos] 45 mg PO DAILY 02/03/18 02/03/18 Simvastatin [Zocor] 20 mg PO HS 02/03/18 02/03/18 Zolpidem [Ambien] 5 mg PO HS PRN 02/03/18 02/03/18 Previous Rx's Medication Instructions Recorded Fluticasone Nasal [place] [Flonase 2 spr EA NOSTRIL DAILY #1 bottle 02/03/18 Nasal [place]] Levofloxacin [Levaquin] 500 mg PO DAILY 3 Days #5 tab 02/03/18 Loratadine [Claritin] 10 mg PO DAILY #30 tab 02/03/18 Orphenadrine [Norflex] 100 mg PO Q12H PRN #16 tablet.er 03/27/18 methocarbamoL [Robaxin] 750 mg PO TID #12 tab 07/25/18 Cyclobenzaprine [Flexeril] 10 mg PO TID PRN #9 tab 11/23/20 HYDROcodone/APAP 10-325MG [[place] 1 tab PO Q6HR PRN 3 Days #12 tab 11/23/20 10-325] Lidocaine 5% Patch [Lidoderm 5% 1 patch TOPICAL DAILY 14 Days #14 08/24/22 Patch] patch oxyCODONE-APAP 10-325MG [Percocet 1 tab PO Q6HR PRN #12 tab 10/19/22 10-325 mg] Bacitracin/Polymyx Oint 1 applic TOPICAL BID #30 gm 11/12/23 [Polysporin Oint] Acetaminophen-Codeine 300-30mg 1 tab PO Q6H PRN 3 Days #12 tablet 11/13/23 [Tylenol w/codeine #3] Mupirocin 2% Oint [Bactroban 2% 1 applic TOPICAL TID #22 gm 11/13/23 Oint] hydrOXYzine HCL [Atarax] 25 mg PO TID PRN #15 tab 11/13/23 Acetaminophen-Codeine 300-30mg 1 tab PO Q6H PRN 3 Days #12 tablet 06/07/24 [Tylenol w/codeine #3] Allergies Allergy/AdvReac Type Severity Reaction Status Date / Time No Known Allergies Allergy Verified 11/13/23 22:15 Review of Systems ROS Statement: Those systems with pertinent positive or pertinent negative responses have been documented in the HPI. ROS Other: All systems not noted in ROS Statement are negative. Past Medical History Past Medical History: Asthma, Diabetes Mellitus, Fibromyalgia Additional Past Medical History / Comment(s): chronic bronchitis, DJD of the back and neck, History of Any Multi-Drug Resistant Organisms: None Reported Past Surgical History: Back Surgery, Orthopedic Surgery Additional Past Surgical History / Comment(s): rt shoulder Past Anesthesia/Blood Transfusion Reactions: No Reported Reaction Past Psychological History: Anxiety, Depression Smoking Status: Current every day smoker Past Alcohol Use History: None Reported Past Drug Use History: None Reported - Past Family History Mother History Unknown: Yes Family Medical History: Diabetes Mellitus General Exam Limitations: no limitations General appearance: alert, in no apparent distress Head exam: Present: atraumatic, normocephalic Eye exam: Present: normal appearance, PERRL ENT exam: Present: normal exam Neck exam: Present: normal inspection. Absent: tenderness, meningismus Respiratory exam: Present: normal lung sounds bilaterally. Absent: respiratory distress, wheezes Cardiovascular Exam: Present: regular rate, normal rhythm GI/Abdominal exam: Present: soft. Absent: distended, tenderness, guarding Extremities exam: Present: normal inspection Neurological exam: Present: alert, oriented X3 Psychiatric exam: Present: normal affect, normal mood Skin exam: Present: warm, dry, intact. Absent: cyanosis, diaphoretic Course Vital Signs 06/07/24 10:51 Temperature 98.2 F Pulse Rate 107 H Respiratory 18 Rate Blood Pressure 137/76 O2 Sat by Pulse 100 Oximetry Medical Decision Making - Medical Decision Making Was pt. sent in by a medical professional or institution (, PA, EARLY CHILDHOOD EDUCATION INSTRUCTOR, urgent care, hospital, or [facility]...) When possible be specific @ -No Did you speak to anyone other than the patient for history (EMS, parent, family, police, friend...)? What history was obtained from this source @ -No Did you review nursing and triage notes (agree or disagree)? Why? @ -I reviewed and agree with nursing and triage notes Were old charts reviewed (outside hosp., previous admission, EMS record, old EKG, old radiological studies, urgent care reports/EKG's, [facility] records)? Report findings @ -No old charts were reviewed Differential Musculoskeletal Muscular strain, contusion, ligament sprain, fracture, arthritis, septic arthritis, bursitis, cellulitis, muscle spasm, nerve compression, DVT, arterial occlusion, herpes zoster, electrolyte abnormality, tumor.... This is not meant to be in all inclusive list EKG interpreted by me (3pts min.). @ -As above X-rays interpreted by me (1pt min.). @ -None done CT interpreted by me (1pt min.). @ -None done U/S interpreted by me (1pt. min.). @ -None done What testing was considered but not performed or refused? (CT, X-rays, U/S, labs)? Why? @ -None What meds were considered but not given or refused? Why? @ -None Did you discuss the management of the patient with other professionals (professionals i.e. , PA, EARLY CHILDHOOD EDUCATION INSTRUCTOR, lab, RT, psych nurse, social science research assistant, acid patroller, teacher, international first officer, case liner)? Give summary @ -No Was smoking cessation discussed for >3mins.? @ -No Was critical care preformed (if so, how long)? @ -No Were there social determinants of health that impacted care today? How? (Homelessness, low income, unemployed, alcoholism, drug addiction, transportation, low edu. Level, literacy, decrease access to med. care, fci, rehab)? @ -No Was there de-escalation of care discussed even if they declined (Discuss DNR or withdrawal of care, Hospice)? DNR status @ -No What co-morbidities impacted this encounter? (DM, HTN, Smoking, COPD, CAD, Cancer, CVA, ARF, Chemo, Hep., AIDS, mental health diagnosis, sleep apnea, morbid obesity)? @Chronic pain Was patient admitted / discharged? Hospital course, mention meds given and route, prescriptions, significant lab abnormalities, going to OR and other pertinent info. @ -year-old female presenting with chronic pain [id number]. No new injury. No fever. Patient otherwise well-appearing. Stable vitals. Given Toradol and [place] in the emergency department. She will be prescribed 3 days of Tylenol 3 awaiting evaluation by her pain specialist in 4 days. Undiagnosed new problem with uncertain prognosis? @ -No Drug Therapy requiring intensive monitoring for toxicity (Heparin, Nitro, Insulin, Cardizem)? @ -No Were any procedures done? @ -No Diagnosis/symptom? @Chronic pain Acute, or Chronic, or Acute on Chronic? @Chronic Uncomplicated (without systemic symptoms) or Complicated (systemic symptoms)? @ -Default Side effects of treatment? @ -No Exacerbation, Progression, or Severe Exacerbation? @ -No Poses a threat to life or bodily function? How? (Chest pain, [place], [place], pneumonia, PE, COPD, DKA, ARF, appy, cholecystitis, CVA, Diverticulitis, Homicidal, Suicidal, threat to staff... and all critical care pts) @ -No Disposition Clinical Impression: Chronic pain Disposition: HOME SELF-CARE Condition: Fair Instructions (If sedation given, give patient instructions): Chronic Pain (ED) Prescriptions: Acetaminophen-Codeine 300-30mg [Tylenol w/codeine #3] 1 tab PO Q6H PRN 3 Days #12 tablet PRN Reason: Pain Is patient prescribed a controlled substance at d/c from ED?: No Referrals: Elidia Davila MD [Primary Care Provider] - 1-2 days Time of Disposition: 11:13
[2024-06-07] MEDS: KETOROLAC 15 MG/ML 1 ML VIAL IM STA (11:28)
[2024-06-07] MEDS: HYDROcodone/APAP 5-325MG 1 EACH TAB PO STA (11:29)
[2024-06-07 12:20] VITALS: BP 153/83; PULSE 86
== END 2024-06-07 12:25 | disposition home or self-care (01) ==
LOC: EC 10:31
CPT/HCPCS: 96372; 99283

== ENCOUNTER 2024-10-21 21:08 | Emergency (ER) | payer MEDICARE, OTHER ==
[2024-10-21 21:16] LABS: Glucose,Whole Blood 552 mg/dL (70-110)
[2024-10-21 21:23] VITALS: TEMP 97.8
[2024-10-21 22:11] LABS: Basophils % (A) 0 %; Eosinophils % (A) 1 %; HCT 35.9 % (34.0-46.0); HGB 11.1 gm/dL (11.4-16.0); Hypochromasia Slight; Lymphocytes % (A) 32 %; MCH 28.1 pg (25.0-35.0); MCHC 31.1 g/dL (31.0-37.0); MCV 90.5 fL (80.0-100.0); Monocytes # (A) 0.4 k/uL (0-1.0); Monocytes % (A) 6 %; Neutrophils # (A) 3.7 k/uL (1.3-7.7); Neutrophils % (A) 60 %; Platelet Count 257 k/uL (150-450); RBC 3.96 m/uL (3.80-5.40); RDW 12.4 % (11.5-15.5); WBC 6.2 k/uL (3.8-10.6)
[2024-10-21 22:21] LABS: ALT 24 U/L (4-34); AST 21 U/L (14-36); African American GFR (CKD) 66 (>60 ml/min/1.73 sqM); Albumin 3.3 g/dL (3.5-5.0); Alkaline Phosphatase 119 U/L (38-126); Anion Gap 9 mmol/L; Blood Urea Nitrogen 25 mg/dL (7-17); Calcium 8.7 mg/dL (8.4-10.2); Carbon Dioxide 23 mmol/L (22-30); Chloride 98 mmol/L (98-107); Magnesium 1.8 mg/dL (1.6-2.3); Non-African American GFR(CKD) 57 (>60 ml/min/1.73 sqM); Sodium 130 mmol/L (137-145); Total Bilirubin 0.5 mg/dL (0.2-1.3); Total Protein 6.3 g/dL (6.3-8.2)
[2024-10-21 22:24] LABS: Glucose 540 mg/dL (74-99)
[2024-10-21 22:38] LABS: INR 0.9 (<1.2); Prothrombin Time 10.6 sec (10.0-12.5)
--- NOTE | 2024-10-21 22:42 | XR ---
EXAMINATION TYPE: XR chest 2V DATE OF EXAM: 10/21/2024 10:26 PM COMPARISON: Chest x-ray August 24, 2022 CLINICAL INDICATION: Female, 59 years old with history of Weakness, TECHNIQUE: Frontal and lateral views of the chest are obtained. FINDINGS: There is no focal air space opacity, pleural effusion, or pneumothorax seen. Suspect calci fied right hilar nodule or benign granuloma similar to prior. The cardiac silhouette size is upper li mits of normal. Metallic anchors right humeral head are redemonstrated. IMPRESSION: No acute cardiopulmonary process. [facility], , 10/21/2024 10:40 PM
--- NOTE | 2024-10-21 22:44 | ED ---
Weakness HPI - General Chief complaint: Weakness Stated complaint: Hyperglycemia Time Seen by Provider: 10/21/24 21:14 Source: patient, EMS Mode of arrival: EMS - History of Present Illness Initial comments: This patient is a 59-year-old woman with history of diabetes who arrives by ambulance to have evaluation for generalized weakness and multiple recent falls. The patient states that over the past 3 to 4 days she has been having increasing weakness. She states that she gets up and is not able to support herself and then falls. She complain of some pain to the lateral aspect of the right thoracic back and states that she may have hit this when she fell. Patient denies head or neck injury. No chest abdominal or extremity pains. MD Complaint: generalized weakness, difficulty walking -: days(s) Location: other (Right thoracic back) Severity: moderate Quality: aching Consistency: constant Improves with: none Worsens with: none Associated Symptoms: denies other symptoms - Related Data Home Medications Medication Instructions Recorded Confirmed ALPRAZolam [Xanax] 2 mg PO BID 07/03/14 02/03/18 Albuterol Sulfate [Ventolin HFA] 2 puff INHALATION RT-Q4H PRN 10/12/14 02/03/18 sitaGLIPtin [Januvia] 100 mg PO DAILY 10/12/14 02/03/18 Gabapentin [Neurontin] 300 mg PO TID 05/26/15 02/03/18 Naproxen [Naprosyn] 500 mg PO BID 05/26/15 02/03/18 oxyCODONE HCL [oxyCODONE HCL (IR)] 30 mg PO Q8H 05/26/15 02/03/18 Azelastine HCl [Astepro] 1 spray EA NOSTRIL BID PRN 02/03/18 02/03/18 Banophen 25 mg PO DAILY PRN 02/03/18 02/03/18 Budesonide-Formot 160-4.5 Mcg 2 puff INHALATION RT-BID 02/03/18 02/03/18 [Symbicort 160-4.5 Mcg Inhaler] Diclofenac Sodium Gel [Voltaren 2 gm TOPICAL BID PRN 02/03/18 02/03/18 Gel] Esomeprazole Magnesium [NexIUM] 40 mg PO DAILY 02/03/18 02/03/18 Insulin Glargine,Hum.rec.anlog 35 unit SQ HS 02/03/18 02/03/18 [Lantus Solostar] Insulin Lispro [humaLOG Kwikpen] See Protocol SQ ACHS 02/03/18 02/03/18 Ipratropium-Albuterol Nebulize 3 ml INHALATION RT-QID 02/03/18 02/03/18 [Duoneb 0.5 mg-3 mg/3 ml Soln] Pioglitazone [Actos] 45 mg PO DAILY 02/03/18 02/03/18 Simvastatin [Zocor] 20 mg PO HS 02/03/18 02/03/18 Zolpidem [Ambien] 5 mg PO HS PRN 02/03/18 02/03/18 Previous Rx's Medication Instructions Recorded Fluticasone Nasal [place] [Flonase 2 spr EA NOSTRIL DAILY #1 bottle 02/03/18 Nasal [place]] Levofloxacin [Levaquin] 500 mg PO DAILY 3 Days #5 tab 02/03/18 Loratadine [Claritin] 10 mg PO DAILY #30 tab 02/03/18 Orphenadrine [Norflex] 100 mg PO Q12H PRN #16 tablet.er 03/27/18 methocarbamoL [Robaxin] 750 mg PO TID #12 tab 07/25/18 Cyclobenzaprine [Flexeril] 10 mg PO TID PRN #9 tab 11/23/20 HYDROcodone/APAP 10-325MG [[place] 1 tab PO Q6HR PRN 3 Days #12 tab 11/23/20 10-325] Lidocaine 5% Patch [Lidoderm 5% 1 patch TOPICAL DAILY 14 Days #14 08/24/22 Patch] patch oxyCODONE-APAP 10-325MG [Perc[place] 1 tab PO Q6HR PRN #12 tab 10/19/22 10-325 mg] Bacitracin/Polymyx Oint 1 applic TOPICAL BID #30 gm 11/12/23 [Polysporin Oint] Acetaminophen-Codeine 300-30mg 1 tab PO Q6H PRN 3 Days #12 tablet 11/13/23 [Tylenol w/codeine #3] Mupirocin 2% Oint [Bactroban 2% 1 applic TOPICAL TID #22 gm 11/13/23 Oint] hydrOXYzine HCL [Atarax] 25 mg PO TID PRN #15 tab 11/13/23 Acetaminophen-Codeine 300-30mg 1 tab PO Q6H PRN 3 Days #12 tablet 06/07/24 [Tylenol w/codeine #3] Allergies Allergy/AdvReac Type Severity Reaction Status Date / Time No Known Allergies Allergy Verified 10/21/24 21:16 Review of Systems ROS Statement: Those systems with pertinent positive or pertinent negative responses have been documented in the HPI. ROS Other: All systems not noted in ROS Statement are negative. Constitutional: Reports: weakness. Denies: fever, chills Eyes: Denies: vision change Respiratory: Denies: cough, dyspnea Cardiovascular: Denies: chest pain, palpitations, orthopnea, edema, syncope Gastrointestinal: Denies: abdominal pain, nausea, vomiting, diarrhea Genitourinary: Denies: dysuria, hematuria Musculoskeletal: Reports: as per HPI, back pain Skin: Denies: rash Neurological: Denies: headache, weakness, numbness Past Medical History Past Medical History: Asthma, Diabetes Mellitus, Fibromyalgia Additional Past Medical History / Comment(s): chronic bronchitis, DJD of the back and neck, History of Any Multi-Drug Resistant Organisms: None Reported Past Surgical History: Back Surgery, Orthopedic Surgery Additional Past Surgical History / Comment(s): rt shoulder Past Anesthesia/Blood Transfusion Reactions: No Reported Reaction Past Psychological History: Anxiety, Depression Smoking Status: Current every day smoker Past Alcohol Use History: None Reported Past Drug Use History: None Reported - Past Family History Mother History Unknown: Yes Family Medical History: Diabetes Mellitus General Exam General appearance: alert, in no apparent distress Head exam: Present: atraumatic, normocephalic Eye exam: Present: normal appearance. Absent: scleral icterus, conjunctival injection ENT exam: Present: normal oropharynx Neck exam: Present: normal inspection, full ROM. Absent: tenderness Respiratory exam: Present: normal lung sounds bilaterally, chest wall tenderness. Absent: respiratory distress, wheezes, rales, rhonchi, stridor, accessory muscle use Cardiovascular Exam: Present: regular rate, normal rhythm, normal heart sounds. Absent: systolic murmur, diastolic murmur, rubs, gallop GI/Abdominal exam: Present: soft. Absent: distended, tenderness, guarding, rebound, rigid, mass Extremities exam: Present: normal inspection, normal capillary refill. Absent: pedal edema, calf tenderness Neurological exam: Present: alert Course Vital Signs 10/21/24 10/21/24 10/21/24 21:16 21:27 23:31 Temperature 97.8 F Pulse Rate 82 75 Respiratory 18 20 Rate Blood Pressure 114/94 152/87 O2 Sat by Pulse 100 96 Oximetry 10/22/24 10/22/24 00:39 02:02 Temperature Pulse Rate 71 72 Respiratory 20 18 Rate Blood Pressure 181/81 152/86 O2 Sat by Pulse Oximetry EKG Findings - EKG Results: EKG: interpreted by AMAURYD, sinus rhythm (Rate 75 bpm), normal axis, normal QRS, normal ST/T, no acute changes - [place], Pacemaker, Normal: Normal tracing: normal tracing Medical Decision Making - Medical Decision Making The patient had chest x-ray that I interpreted as negative for acute infiltrate, pneumothorax, congestive heart failure. Suspected calcified granuloma right lung. - Lab Data Result diagrams: 10/21/24 21:16 10/21/24 21:16 Lab Results 10/21/24 10/21/24 10/21/24 Range/Units 21:14 21:16 21:16 WBC 6.2 (3.8-10.6) k/uL RBC 3.96 (3.80-5.40) m/uL Hgb 11.1 L (11.4-16.0) gm/dL Hct 35.9 (34.0-46.0) % MCV 90.5 (80.0-100.0) fL MCH 28.1 (25.0-35.0) pg MCHC 31.1 (31.0-37.0) g/dL RDW 12.4 (11.5-15.5) % Plt Count 257 (150-450) k/uL MPV 8.0 Neutrophils % 60 % Lymphocytes % 32 % Monocytes % 6 % Eosinophils % 1 % Basophils % 0 % Neutrophils # 3.7 (1.3-7.7) k/uL Lymphocytes # 2.0 (1.0-4.8) k/uL Monocytes # 0.4 (0-1.0) k/uL Eosinophils # 0.0 (0-0.7) k/uL Basophils # 0.0 (0-0.2) k/uL Hypochromasia Slight PT 10.6 (10.0-12.5) sec INR 0.9 (<1.2) APTT 21.0 L (22.0-30.0) sec Sodium (137-145) mmol/L Potassium (3.5-5.1) mmol/L Chloride (98-107) mmol/L Carbon Dioxide (22-30) mmol/L Anion Gap mmol/L BUN (7-17) mg/dL Creatinine (0.52-1.04) mg/dL Est GFR (CKD-EPI)AfAm (>60 ml/min/1.73 sqM) Est GFR (CKD-EPI)NonAf (>60 ml/min/1.73 sqM) Glucose (74-99) mg/dL POC Glucose (mg/dL) 552 H* (70-110) mg/dL POC Glu Deposit Refund Clerk ID Achatz Ysabel Plasma Lactic Acid Tyrel (0.7-2.0) mmol/L Calcium (8.4-10.2) mg/dL Magnesium (1.6-2.3) mg/dL Total Bilirubin (0.2-1.3) mg/dL AST (14-36) U/L ALT (4-34) U/L Alkaline Phosphatase (38-126) U/L Troponin I (0.000-0.034) ng/mL Total Protein (6.3-8.2) g/dL Albumin (3.5-5.0) g/dL TSH (0.465-4.680) mIU/L Urine Color Urine Appearance (Clear) Urine pH (5.0-8.0) Ur Specific [place] (1.001-1.035) Urine Protein (Negative) Urine Glucose (UA) (Negative) Urine Ketones (Negative) Urine Blood (Negative) Urine Nitrite (Negative) Urine Bilirubin (Negative) Urine Urobilinogen (<2.0) mg/dL Ur Leukocyte Esterase (Negative) 10/21/24 10/21/24 10/21/24 Range/Units 21:16 21:16 22:05 WBC (3.8-10.6) k/uL RBC (3.80-5.40) m/uL Hgb (11.4-16.0) gm/dL Hct (34.0-46.0) % MCV (80.0-100.0) fL MCH (25.0-35.0) pg MCHC (31.0-37.0) g/dL RDW (11.5-15.5) % Plt Count (150-450) k/uL MPV Neutrophils % % Lymphocytes % % Monocytes % % Eosinophils % % Basophils % % Neutrophils # (1.3-7.7) k/uL Lymphocytes # (1.0-4.8) k/uL Monocytes # (0-1.0) k/uL Eosinophils # (0-0.7) k/uL Basophils # (0-0.2) k/uL Hypochromasia PT (10.0-12.5) sec INR (<1.2) APTT (22.0-30.0) sec Sodium 130 L (137-145) mmol/L Potassium 5.0 (3.5-5.1) mmol/L Chloride 98 (98-107) mmol/L Carbon Dioxide 23 (22-30) mmol/L Anion Gap 9 mmol/L BUN 25 H (7-17) mg/dL Creatinine 1.05 H (0.52-1.04) mg/dL Est GFR (CKD-EPI)AfAm 66 (>60 ml/min/1.73 sqM) Est GFR (CKD-EPI)NonAf 57 (>60 ml/min/1.73 sqM) Glucose 540 H* (74-99) mg/dL POC Glucose (mg/dL) (70-110) mg/dL POC Glu Deposit Refund Clerk ID Plasma Lactic Acid Tyrel 1.5 (0.7-2.0) mmol/L Calcium 8.7 (8.4-10.2) mg/dL Magnesium 1.8 (1.6-2.3) mg/dL Total Bilirubin 0.5 (0.2-1.3) mg/dL AST 21 (14-36) U/L ALT 24 (4-34) U/L Alkaline Phosphatase 119 (38-126) U/L Troponin I <0.012 (0.000-0.034) ng/mL Total Protein 6.3 (6.3-8.2) g/dL Albumin 3.3 L (3.5-5.0) g/dL TSH 1.310 (0.465-4.680) mIU/L Urine Color Urine Appearance (Clear) Urine pH (5.0-8.0) Ur Specific [place] (1.001-1.035) Urine Protein (Negative) Urine Glucose (UA) (Negative) Urine Ketones (Negative) Urine Blood (Negative) Urine Nitrite (Negative) Urine Bilirubin (Negative) Urine Urobilinogen (<2.0) mg/dL Ur Leukocyte Esterase (Negative) 10/21/24 10/22/24 10/22/24 Range/Units 22:40 00:41 01:51 WBC (3.8-10.6) k/uL RBC (3.80-5.40) m/uL Hgb (11.4-16.0) gm/dL Hct (34.0-46.0) % MCV (80.0-100.0) fL MCH (25.0-35.0) pg MCHC (31.0-37.0) g/dL RDW (11.5-15.5) % Plt Count (150-450) k/uL MPV Neutrophils % % Lymphocytes % % Monocytes % % Eosinophils % % Basophils % % Neutrophils # (1.3-7.7) k/uL Lymphocytes # (1.0-4.8) k/uL Monocytes # (0-1.0) k/uL Eosinophils # (0-0.7) k/uL Basophils # (0-0.2) k/uL Hypochromasia PT (10.0-12.5) sec INR (<1.2) APTT (22.0-30.0) sec Sodium (137-145) mmol/L Potassium (3.5-5.1) mmol/L Chloride (98-107) mmol/L Carbon Dioxide (22-30) mmol/L Anion Gap mmol/L BUN (7-17) mg/dL Creatinine (0.52-1.04) mg/dL Est GFR (CKD-EPI)AfAm (>60 ml/min/1.73 sqM) Est GFR (CKD-EPI)NonAf (>60 ml/min/1.73 sqM) Glucose (74-99) mg/dL POC Glucose (mg/dL) 487 H 442 H (70-110) mg/dL POC Glu Deposit Refund Clerk ID Caya Yessica Caya Yessica Plasma Lactic Acid Tyrel (0.7-2.0) mmol/L Calcium (8.4-10.2) mg/dL Magnesium (1.6-2.3) mg/dL Total Bilirubin (0.2-1.3) mg/dL AST (14-36) U/L ALT (4-34) U/L Alkaline Phosphatase (38-126) U/L Troponin I (0.000-0.034) ng/mL Total Protein (6.3-8.2) g/dL Albumin (3.5-5.0) g/dL TSH (0.465-4.680) mIU/L Urine Color Colorless Urine Appearance Clear (Clear) Urine pH 6.0 (5.0-8.0) Ur Specific [place] 1.029 (1.001-1.035) Urine Protein Negative (Negative) Urine Glucose (UA) 4+ H (Negative) Urine Ketones Trace H (Negative) Urine Blood Negative (Negative) Urine Nitrite Negative (Negative) Urine Bilirubin Negative (Negative) Urine Urobilinogen <2.0 (<2.0) mg/dL Ur Leukocyte Esterase Negative (Negative) 10/22/24 Range/Units 02:45 WBC (3.8-10.6) k/uL RBC (3.80-5.40) m/uL Hgb (11.4-16.0) gm/dL Hct (34.0-46.0) % MCV (80.0-100.0) fL MCH (25.0-35.0) pg MCHC (31.0-37.0) g/dL RDW (11.5-15.5) % Plt Count (150-450) k/uL MPV Neutrophils % % Lymphocytes % % Monocytes % % Eosinophils % % Basophils % % Neutrophils # (1.3-7.7) k/uL Lymphocytes # (1.0-4.8) k/uL Monocytes # (0-1.0) k/uL Eosinophils # (0-0.7) k/uL Basophils # (0-0.2) k/uL Hypochromasia PT (10.0-12.5) sec INR (<1.2) APTT (22.0-30.0) sec Sodium (137-145) mmol/L Potassium (3.5-5.1) mmol/L Chloride (98-107) mmol/L Carbon Dioxide (22-30) mmol/L Anion Gap mmol/L BUN (7-17) mg/dL Creatinine (0.52-1.04) mg/dL Est GFR (CKD-EPI)AfAm (>60 ml/min/1.73 sqM) Est GFR (CKD-EPI)NonAf (>60 ml/min/1.73 sqM) Glucose (74-99) mg/dL POC Glucose (mg/dL) 388 H (70-110) mg/dL POC Glu Deposit Refund Clerk ID Stephanie Juan Plasma Lactic Acid Tyrel (0.7-2.0) mmol/L Calcium (8.4-10.2) mg/dL Magnesium (1.6-2.3) mg/dL Total Bilirubin (0.2-1.3) mg/dL AST (14-36) U/L ALT (4-34) U/L Alkaline Phosphatase (38-126) U/L Troponin I (0.000-0.034) ng/mL Total Protein (6.3-8.2) g/dL Albumin (3.5-5.0) g/dL TSH (0.465-4.680) mIU/L Urine Color Urine Appearance (Clear) Urine pH (5.0-8.0) Ur Specific [place] (1.001-1.035) Urine Protein (Negative) Urine Glucose (UA) (Negative) Urine Ketones (Negative) Urine Blood (Negative) Urine Nitrite (Negative) Urine Bilirubin (Negative) Urine Urobilinogen (<2.0) mg/dL Ur Leukocyte Esterase (Negative) Disposition Clinical Impression: Dehydration, Hyperglycemia due to type 2 diabetes mellitus Disposition: HOME SELF-CARE Condition: Good Instructions (If sedation given, give patient instructions): Diabetic Hyperglycemia (ED) Is patient prescribed a controlled substance at d/c from ED?: No Referrals: Elidia Davila MD [Primary Care Provider] - 1-2 days Andie Delacruz [STAFF PHYSICIAN] - 1-2 days
[2024-10-21 22:52] LABS: Appearance,Urine Clear (Clear); Bilirubin,Urine Negative (Negative); Blood,Urine Negative (Negative); Color,Urine Colorless; Glucose,Urine (UA) 4+ (Negative); Ketones,Urine Trace (Negative); Leukocyte Esterase,Urine Negative (Negative); Nitrite,Urine Negative (Negative); Protein,Urine Negative (Negative); Specific Gravity,Urine 1.029 (1.001-1.035); Urobilinogen,Urine <2.0 mg/dL (<2.0)
[2024-10-21] MEDS: HYDROcodone/APAP 5-325MG 1 EACH TAB PO STA (23:13)
[2024-10-21] MEDS: SODIUM CHLORIDE 0.9% 500 ML 500 ML IV STA (23:15)
[2024-10-22] MEDS: INSULIN REGULAR 100 UNIT/ML VIAL (IV) SQ STA (00:18)
[2024-10-22] MEDS: ONDANSETRON 4 MG/2 ML VIAL IVP STA (00:18)
[2024-10-22] MEDS: SODIUM CHLORIDE 0.9% 2,000 ML IV ONE (00:18)
[2024-10-22 00:43] LABS: Glucose,Whole Blood 487 mg/dL (70-110)
[2024-10-22 01:53] LABS: Glucose,Whole Blood 442 mg/dL (70-110)
[2024-10-22 02:03] VITALS: BP 152/86; PULSE 72; RESP 18
[2024-10-22 02:47] LABS: Glucose,Whole Blood 388 mg/dL (70-110)
[2024-10-22] MEDS: HYDROcodone/APAP 5-325MG 1 EACH TAB PO STA (02:57)
== END 2024-10-22 03:26 | disposition home or self-care (01) ==
LOC: EC 21:08
DX: E11.65 Type 2 diabetes mellitus with hyperglycemia (principal); E86.0 Dehydration; R07.89 Other chest pain; F17.200 Nicotine dependence, unspecified, uncomplicated; Z79.84 Long term (current) use of oral hypoglycemic drugs; Z79.4 Long term (current) use of insulin
CPT/HCPCS: 99285; 96374; 96361 ×3; 36415 ×2; 93005; 80053; 83605; 83735; 84443; 84484; 85025; 85610; 85730; 81003; 71046; J2405; 96360; 99284